=== PATIENT | male | born 1995 ===

== ENCOUNTER → 2016-12-15 | Outpatient (CLI) | payer MEDICAID ==
--- NOTE | 2016-12-18 12:47 | CPEEG ---
[f rep st] ELECTROENCEPHALOGRAM FOUR HOUR VIDEO EEG. DATE OF STUDY: 12/15/2016 DATE OF INTERPRETATION: 12/18/2016. INTERPRETATION: This 4-hour video EEG recording is normal. There were no potentially epileptogenic abnormalities present during the awake or sleep recordings. During the video EEG monitoring zo ibarra, the patient did not have any clinical events. REPORT: This 4-hour video EEG contains 10 Hz alpha activity to the posterior head regions. There w as a persistent, periodic muscle artifact present over electrode T4 that waxed and waned and resolve d during sleep. The background activity was normal and symmetric. There was no abnormal activation at rest, during photic stimulation, or hyperventilation. The patient became drowsy and fell into s ustained sleep during the study. There was no abnormal activation during drowsiness, sleep, or duri ng times of arousal. The patient did not have any clinical events during this video EEG monitoring session. /[id number]/MODL
== END ==
LOC: FCPNEURO 08:47
PROVIDERS: ATTEND Psychiatry & Neurology Neurology
DX: G40.909 Epilepsy, unspecified, not intractable, without status epilepticus (principal)